=== PATIENT | male | born 1980 | race Native Hawaiian/Other Pacific Islander ===

== ENCOUNTER 2018-02-11 10:31 | Emergency (ER) | payer OTHER ==
[~2018-02-11] VITALS: Ht 180.3 cm; Wt 104.3 kg
== END 2018-02-11 11:45 | disposition home or self-care (01) ==
LOC: ED 10:31
DX: M54.5 Low back pain (principal)
CPT/HCPCS: 99282

== ENCOUNTER 2021-02-03 14:37 | Emergency (ER) | payer OTHER ==
[~2021-02-03] VITALS: Ht 180.3 cm; Wt 111.1 kg
[2021-02-03 15:52] LABS: PLATELET COUNT 143 K/uL (142-355)
[2021-02-03 16:07] LABS: POTASSIUM 3.7 mmol/L (3.6-5.2)
[2021-02-03 17:10] VITALS: BP 114/81; TEMP 98.8
== END 2021-02-03 17:10 | disposition home or self-care (01) ==
LOC: ED 14:37
PROVIDERS: Family Medicine
DX: U07.1 COVID-19 (principal)
CPT/HCPCS: 80053; 85027; 87502; 87635; 87651; 99283; U0003